=== PATIENT | female | born 1945 | race Caucasian/White ===

== ENCOUNTER 2019-09-14 00:20 | Emergency (ER) | payer MEDICARE, BC ==
--- NOTE | 2019-09-14 01:26 | EDM.PDOC ---
ED [facility] GENERAL MEDICAL PROBLEM - General Chief Complaint: Lower Extremity Injury/Pain Stated Complaint: INJURED TOE Time Seen by Provider: 09/14/19 01:33 Source of Information: Reports: Patient History Limitations: Reports: No Limitations - History of Present Illness INITIAL COMMENTS - FREE TEXT/NARRATIVE: 74 years old female patient presented to the ER with a chief complaint of redness and swelling of her right big toe and foot. Noted today. She have open sore on the right big toe. She think her toe was rubbing against her shoe. Cannot recall any other injury or trauma. Denies any fever. Denies any chest pain or shortness breath. Denies any cough. Denies any abdominal pain diarrhea or constipation. Denies any urinary symptom. Review of Systems - Review of Systems Review Of Systems: Comprehensive ROS is negative, except as noted in HPI. ED EXAM, GENERAL - Physical Exam Exam: See Below Exam Limited By: No Limitations General Appearance: Alert, WD/WN, No Apparent Distress Head: Atraumatic, Normocephalic Neck: Normal Inspection, Supple, Non-Tender, Full Range of Motion Respiratory/Chest: No Respiratory Distress, Lungs Clear, Normal Breath Sounds, No Accessory Muscle Use, Chest Non-Tender Cardiovascular: Normal Peripheral Pulses, Regular Rate, Rhythm, No Edema, No Gallop, No JVD, No Murmur, No Rub Extremities: Other (Redness, tenderness of the right big toe with red streak going up the right foot. CMS intact. Slightly warm.) Neurological: Alert, Oriented, CN II-XII Intact, Normal Cognition, Normal Gait, Normal Reflexes, No Motor/Sensory Deficits Course - Vital Signs Last Recorded V/S: Last Vital Signs Temp 37.4 C 09/14/19 00:51 Pulse 97 09/14/19 00:51 Resp 16 09/14/19 00:51 BP 128/64 09/14/19 00:51 Pulse Ox 97 09/14/19 00:51 - Orders/Labs/Meds Meds: Medications Discontinued Medications Generic Name Dose Route Start Last Admin Trade Name Freq PRN Reason Stop Dose Admin Ceftriaxone Sodium 1 gm 09/14/19 01:30 Rocephin IM 09/14/19 01:31 ONETIME ONE - Re-Assessments/Exams Free Text/Narrative Re-Assessment/Exam: 09/14/19 01:36 Patient was seen and examined shortly after arrival. Stable. This most likely cellulitis. Given 1 g IM Rocephin. Given a prescription for 10 day course of Keflex. Advised to rest and stay well-hydrated. Close follow-up with PCP. Come back for any concern or any worsening symptom. Patient agrees with the plan. Stable for discharge. Departure - Departure Time of Disposition: 01:37 Disposition: Home, Self-Care 01 Condition: Good Clinical Impression: Cellulitis - Discharge Information Instructions: Cellulitis, Adult Referrals: PCP,None [Primary Care Provider] - Forms: ED Department Discharge Additional Instructions: Advised to rest and stay well-hydrated. Close follow-up with PCP. Come back for any concern or any worsening symptom. Sepsis Event Note (ED) - Focused Exam Vital Signs: Vital Signs Temp Pulse Resp BP Pulse Ox 09/14/19 00:51 37.4 C 97 16 128/64 97 - Assessment/Plan Plan: Advised to rest and stay well-hydrated. Close follow-up with PCP. Come back for any concern or any worsening symptom.
[2019-09-14] MEDS ORDERED: cefTRIAXone 1 GM Vial IM ONE (01:30)
== END 2019-09-14 02:34 | disposition home or self-care (01) ==
LOC: JP.ED 00:20
DX: L03.031 Cellulitis of right toe (principal)
CPT/HCPCS: 96372; 99283; J0696; 99282; J2001